=== PATIENT | female | born 1975 | race Caucasian/White ===

== ENCOUNTER 2016-09-16 12:27 | Emergency (ER) | payer MEDICAID ==
[2016-09-16] MEDS ORDERED: Albuterol 0.083% 2.5 MG/3 ML Neb Soln NEB ONE (13:36)
--- NOTE | 2016-09-16 13:37 | EDM.PDOC ---
ED HPI ENT - General Chief Complaint: ENT Problem Stated Complaint: COUGH, CHILLS, BODY ACHE, CHEST HURTS, FATIGUE Time Seen by Provider: 09/16/16 13:37 Source: Reports: Patient, Family History Limitations: Reports: No limitations - History of Present Illness INITIAL COMMENTS - FREE TEXT/NARRATIVE: pt has pain when she takes a deep breath. She is coughing markedly. She is raising some sputum. sh feels mildly sob. Timing/Duration: Reports: Day(s):, Getting worse Severity: moderate Associated symptoms: Reports: shortness of breath, chest pain, malaise - Related Data Allergies/ADRs: Allergies Allergy/AdvReac Type Severity Reaction Status Date / Time codeine Allergy Rash Verified 09/16/16 12:53 Home Meds: Home Meds NK [No Known Home Meds] 09/16/16 [History] Past Medical History - Past Health History Medical/Surgical History: Denies Medical/Surgical History - Past Surgical History HEENT Surgical History: Reports: Naso-sinus surgery Female Surgical History: Reports: section, Tubal ligation Social & Family History - Tobacco Use Smoking Status *Q: Current Every Day Smoker Years of Tobacco use: 10 Packs/Tins Daily: 0.5 - Alcohol Use Days Per Week of Alcohol Use: 0 - Recreational Drug Use Recreational Drug Use: No ED ROS ENT - Review of Systems Review Of Systems: See Below Constitutional: Reports: fever, chills, malaise HEENT: Reports: No symptoms Respiratory: Reports: Shortness of Breath, Pleuritic Chest Pain, Cough Cardiovascular: Reports: No symptoms Endocrine: Reports: no symptoms GI/Abdominal: Reports: No symptoms : Reports: no symptoms ED EXAM, ENT - Physical Exam Exam: See Below Text/Narrative:: pt has a very deep cough. she is raising some sputum. She smokes about 1/2 pack daily. Exam Limited By: No limitations General Appearance: alert, mild distress Ears: normal TMs Nose: normal inspection Mouth/Throat: Normal inspection Head: scalp abrasions Neck: normal inspection Respiratory/Chest: decreased breath sounds, wheezing, other (bronchospastic cough) Cardiovascular: regular rate, rhythm GI/Abdominal: soft, non tender Back: normal inspection Extremities: normal inspection Course - Vital Signs Last Recorded V/S: Last Vital Signs Temp 37.2 C 09/16/16 12:56 Pulse 77 09/16/16 14:37 Resp 16 09/16/16 14:37 BP 106/60 09/16/16 14:37 Pulse Ox 98 09/16/16 14:37 - Orders/Labs/Meds Orders: Active Orders 24 hr Category Date Time Status RT Aerosol Therapy [RC] ASDIRECTED Care 09/16/16 13:37 Active Chest 2V [CR] Stat Exams 09/16/16 13:35 Taken Labs: Laboratory Tests 09/16/16 09/16/16 Range/Units 13:46 13:46 WBC 4.9 (4.5-11.0) K/uL RBC 4.60 (3.30-5.50) M/uL Hgb 13.9 (12.0-15.0) g/dL Hct 42.8 (36.0-48.0) % MCV 93 (80-98) fL MCH 30 (27-31) pg MCHC 33 (32-36) % Plt Count 192 (150-400) K/uL Neut % (Auto) 67 H (36-66) % Lymph % (Auto) 20 L (24-44) % Gladwin % (Auto) 11 H (2-6) % Eos % (Auto) 1 L (2-4) % Baso % (Auto) 1 (0-1) % Sodium 140 (140-148) mmol/L Potassium 4.4 (3.6-5.2) mmol/L Chloride 106 (100-108) mmol/L Carbon Dioxide 28 (21-32) mmol/L Anion Gap 6.2 (5.0-14.0) mmol/L BUN 10 (7-18) mg/dL Creatinine 0.8 (0.6-1.0) mg/dL Est Cr Clr Drug Dosing 77.33 mL/min Estimated GFR (MDRD) > 60 (>60) Glucose 84 (74-106) mg/dL Calcium 7.7 L (8.5-10.1) mg/dL Total Bilirubin 0.2 (0.2-1.0) mg/dL AST 19 (15-37) U/L ALT 20 (12-78) U/L Alkaline Phosphatase 87 (46-116) U/L Total Protein 6.5 (6.4-8.2) g/dL Albumin 3.6 (3.4-5.0) g/dL Globulin 2.9 (2.3-3.5) g/dL Albumin/Globulin Ratio 1.2 (1.2-2.2) Meds: Medications Discontinued Medications Generic Name Dose Route Start Last Admin Trade Name Freq PRN Reason Stop Dose Admin Albuterol 2.5 mg 09/16/16 13:36 09/16/16 14:03 Proventil Neb Soln NEB 09/16/16 13:37 2.5 mg ONETIME ONE Administration - Re-Assessments/Exams Free Text/Narrative Re-Assessment/Exam: 09/16/16 15:07 chest xray did not reveal a infiltrate. She had a neb and did feel better after that. her wbc is not high. her influ a and b is neg. Departure - Departure Time of Disposition: 15:09 Disposition: Home, Self-Care 01 Condition: fair Clinical Impression: Bronchitis, Bronchospasm Forms: ED Department Discharge Care Plan Goals: cool mist humidifier, push fluids, pt has a albuterol inhaler at home-- use 2 puffs qid, nirmal españasin ac 2 tsp q6h prn for cough. - My Orders Last 24 Hours: My Active Orders 09/16/16 13:35 Chest 2V [CR] Stat 09/16/16 13:37 RT Aerosol Therapy [RC] ASDIRECTED - Assessment/Plan Last 24 Hours: My Active Orders 09/16/16 13:35 Chest 2V [CR] Stat 09/16/16 13:37 RT Aerosol Therapy [RC] ASDIRECTED
[2016-09-16 14:38] VITALS: BP 106/60
--- NOTE | 2016-09-17 09:15 | CR ---
Chest 2V INDICATION: pain with deep breathing FINDINGS: Negative chest.
== END 2016-09-16 15:19 | disposition home or self-care (01) ==
LOC: JP.ED 12:27
DX: J40 Bronchitis, not specified as acute or chronic (principal); J98.01 Acute bronchospasm; F17.210 Nicotine dependence, cigarettes, uncomplicated; Z88.5 Allergy status to narcotic agent; Z98.51 Tubal ligation status; Z98.890 Other specified postprocedural states
CPT/HCPCS: 36415; 71020; 71020-26; 80053; 85025; 87804; 94640; 99284-25

== ENCOUNTER 2019-01-10 15:10 | Emergency (ER) | payer MEDICAID ==
[2019-01-10 16:59] VITALS: BP 122/71; PULSE 74
[2019-01-10] MEDS ORDERED: Ketorolac 60 MG/2 ML SDV IM ONE (18:08)
--- NOTE | 2019-01-10 18:15 | EDM.PDOC ---
ED HPI GENERAL MEDICAL PROBLEM - General Chief Complaint: Neck Problem Stated Complaint: PULLED A MUSCLE, CANT TURN NECK/HEAD Time Seen by Provider: 01/10/19 18:00 Source of Information: Reports: Patient History Limitations: Reports: No Limitations - History of Present Illness INITIAL COMMENTS - FREE TEXT/NARRATIVE: 43 year old female woke this AM with a sharp pain in her right upper back and neck. She has had this in the past but it's been a few years. Some pain with breathing but no shortness of breath, she has to hold her head still to help with discomfort. 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: Musculoskeletal History: Reports: Fracture Other Musculoskeletal History: leg - Infectious Disease History Infectious Disease History: Reports: Chicken Pox - Past Surgical History HEENT Surgical History: Reports: Naso-Sinus Surgery Female Surgical History: Reports: Section, Tubal Ligation Social & Family History - Tobacco Use Smoking Status *Q: Current Every Day Smoker Years of Tobacco use: 10 Packs/Tins Daily: 0.5 Used Tobacco, but Quit: No Second Hand Smoke Exposure: Yes - Caffeine Use Caffeine Use: Reports: Coffee - Recreational Drug Use Recreational Drug Use: No ED ROS GENERAL - Review of Systems Review Of Systems: See Below Constitutional: Denies: Fever, Chills Respiratory: Denies: Shortness of Breath Cardiovascular: Denies: Chest Pain GI/Abdominal: Denies: Abdominal Pain, Nausea, Vomiting Skin: Denies: Rash (No rash over painful area) ED EXAM, UPPER BACK/NECK PAIN - Physical Exam Exam: See Below Exam Limited By: No Limitations General Appearance: Alert, No Apparent Distress Head Exam: Atraumatic Neck Exam: Other (She is tender to palpation over the lower right paracervical area and upper thoracic area over the rhomboids. No asymmetry) Cardiovascular/Respiratory: Normal Breath Sounds Course - Vital Signs Last Recorded V/S: Last Vital Signs Temp 97 F 01/10/19 16:58 Pulse 74 01/10/19 16:58 Resp 16 01/10/19 16:58 BP 122/71 01/10/19 16:58 Pulse Ox 98 01/10/19 16:58 - Orders/Labs/Meds Meds: Medications Discontinued Medications Generic Name Dose Route Start Last Admin Trade Name Anila PRN Reason Stop Dose Admin Ketorolac Tromethamine 60 mg 01/10/19 18:08 01/10/19 18:17 Toradol IM 01/10/19 18:09 60 mg ONETIME ONE Administration - Re-Assessments/Exams Free Text/Narrative Re-Assessment/Exam: 01/10/19 18:32 Patient has a localized rhomboid muscle strain or irritation radiating into the paracervical muscles. She was given a shot of Toradol 60 mg, and some additional 10 mg oral doses along with Flexeril. She was encouraged to increase activity as soon as possible, heat to the area may be beneficial and she can recheck next week if not improving satisfactorily. Departure - Departure Time of Disposition: 18:24 Disposition: Home, Self-Care 01 Clinical Impression: Rhomboid muscle pain - Discharge Information Instructions: Muscle Pain, Adult Referrals: PCP,None [Primary Care Provider] - Forms: ED Department Discharge Care Plan Goals: Take medications as prescribed and increase activity as tolerated. Recheck in 4- 6 days if not improving as expected.
== END 2019-01-10 18:24 | disposition home or self-care (01) ==
LOC: JP.ED 15:10
DX: M79.18 Myalgia, other site (principal)
CPT/HCPCS: 96372; 99283; J1885

== ENCOUNTER 2021-09-23 15:21 | Emergency (ER) | payer MEDICAID ==
[2021-09-23 15:50] VITALS: BP 128/82; PULSE 92
[2021-09-23] MEDS ORDERED: Diphtheria,Pertussis(Acell),Tetanus Vaccine 0.5 ML Syringe IM ONE (16:11)
== END 2021-09-23 16:15 | disposition home or self-care (01) ==
LOC: JP.ED 15:21
DX: S91.052A Open bite, left ankle, initial encounter (principal); Z88.5 Allergy status to narcotic agent; Z72.0 Tobacco use; Z23 Encounter for immunization; W54.0XXA Bitten by dog, initial encounter
CPT/HCPCS: 90471; 90715; 99281; 99283

== ENCOUNTER 2021-11-30 15:23 | Emergency (ER) | payer MEDICAID ==
[2021-11-30 15:51] VITALS: BP 118/67; PULSE 96
== END 2021-11-30 16:42 | disposition home or self-care (01) ==
LOC: JP.ED 15:23
DX: M54.50 Low back pain, unspecified (principal); F17.210 Nicotine dependence, cigarettes, uncomplicated; Z88.5 Allergy status to narcotic agent
CPT/HCPCS: 81001; 99282; 99283